=== PATIENT | male | born 1975 | race Caucasian/White ===

== ENCOUNTER 2017-05-04 23:47 | Observation (INO) | payer OTHER ==
--- NOTE | 2017-05-04 23:48 | EDM.PDOC ---
ED HPI GENERAL MEDICAL PROBLEM - General Stated Complaint: CHEST PAIN Time Seen by Provider: 05/05/17 00:55 - History of Present Illness INITIAL COMMENTS - FREE TEXT/NARRATIVE: HISTORY AND PHYSICAL: History of present illness: Patient is 41-year-old white male withpast medical history of sensory concern chest pain he states this awoke him from sleep and was midsternal moderate to severe he states he right arm and right leg discomfort with this all is resolved on arrival except chest pain that he rates as 4 out of 10 he did have some associated nausea equivocal shortness of breath he denies palpitations he denies history of prior coronary artery disease stroke he did state to having had one panic attack in the past for which he was hospitalized Review of systems: As per history of present illness and below otherwise all systems reviewed and negative. Past medical history: As per history of present illness and as reviewed below otherwise noncontributory. Surgical history: As per history of present illness and as reviewed below otherwise noncontributory. Social history: No reported history of drug or alcohol abuse. Family history: As per history of present illness and as reviewed below otherwise noncontributory. Physical exam: HEENT: Atraumatic, normocephalic, pupils reactive, negative for conjunctival pallor or scleral icterus, mucous membranes moist, throat clear, neck supple, nontender, trachea midline. Lungs: Clear to auscultation, breath sounds equal bilaterally, chest nontender. Heart: S1S2, regular, negative for clicks, rubs, or JVD. Abdomen: Soft, nondistended, nontender. Negative for masses or hepatosplenomegaly. Negative for costovertebral tenderness. Pelvis: Stable nontender. Genitourinary: Deferred. Rectal: Deferred. Extremities: Atraumatic, negative for cords or calf pain. Neurovascular unremarkable. Neuro: Awake, alert, oriented. Cranial nerves II through XII unremarkable. Cerebellum unremarkable. Motor and sensory unremarkable throughout. Exam nonfocal. Diagnostics: CBC CMP PT/INR troponin chest x-ray EKG Therapeutics: IV O2 monitor Ativan 1 mg IV Impression: 1 chest pain Definitive disposition and diagnosis as appropriate pending reevaluation and review of above. - Related Data Allergies Allergy/AdvReac Type Severity Reaction Status Date / Time lactose Allergy Abdominal Verified 05/04/17 23:50 Cramps morphine Allergy Rash Verified 05/04/17 23:50 Home Meds: Home Meds Omeprazole Magnesium [Prilosec Otc] 20 mg PO DAILY 07/28/13 [History] Lisinopril 20 mg PO DAILY 05/04/17 [History] Social & Family History - Tobacco Use Second Hand Smoke Exposure: No - Alcohol Use Days Per Week of Alcohol Use: 0 - Recreational Drug Use Recreational Drug Use: No ED ROS GENERAL - Review of Systems Review Of Systems: ROS reveals no pertinent complaints other than HPI. ED EXAM, GENERAL - Physical Exam Exam: See Below (See dictation) Course - Vital Signs Last Recorded V/S: Last Vital Signs Temp 36.5 C 05/04/17 23:51 Pulse 70 05/05/17 00:48 Resp 18 05/05/17 00:48 BP 127/75 05/05/17 00:48 Pulse Ox 96 05/05/17 00:48 - Orders/Labs/Meds Orders: Active Orders 24 hr Category Date Time Status EKG Documentation Completion [RC] STAT Care 05/04/17 23:51 Active Chest 1V Frontal [CR] Stat Exams 05/04/17 23:51 Taken Labs: Laboratory Tests 05/05/17 05/05/17 Range/Units 00:04 00:04 WBC 7.88 (4.0-11.0) K/uL RBC 4.70 (4.50-5.90) M/uL Hgb 14.2 (13.0-17.0) g/dL Hct 41.1 (38.0-50.0) % MCV 87.4 (80.0-98.0) fL MCH 30.2 (27.0-32.0) pg MCHC 34.5 (31.0-37.0) g/dL RDW Std Deviation 42.1 (28.0-62.0) fl RDW Coeff of Crescencio 13 (11.0-15.0) % Plt Count 218 (150-400) K/uL MPV 11.10 (7.40-12.00) fL Neut % (Auto) 60.1 (48.0-80.0) % Lymph % (Auto) 30.6 (16.0-40.0) % [place] % (Auto) 7.5 (0.0-15.0) % Eos % (Auto) 1.4 (0.0-7.0) % Baso % (Auto) 0.4 (0.0-1.5) % Neut # (Auto) 4.7 (1.4-5.7) K/uL Lymph # (Auto) 2.4 (0.6-2.4) K/uL [place] # (Auto) 0.6 (0.0-0.8) K/uL Eos # (Auto) 0.1 (0.0-0.7) K/uL Baso # (Auto) 0.0 (0.0-0.1) K/uL Nucleated RBC % 0.0 /100WBC Nucleated RBCs # 0 K/uL Sodium 138 (136-148) mmol/L Potassium 3.8 (3.5-5.1) mmol/L Chloride 105 (98-107) mmol/L Carbon Dioxide 26.8 (21.0-32.0) mmol/L BUN 18 (7.0-18.0) mg/dL Creatinine 1.1 (0.8-1.3) mg/dL Est Cr Clr Drug Dosing 90.33 mL/min Estimated GFR (MDRD) > 60.0 ml/min Glucose 170 H (74-106) mg/dL Calcium 8.6 (8.5-10.1) mg/dL Total Bilirubin 0.9 (0.2-1.0) mg/dL AST 27 (15-37) IU/L ALT 73 H (14-63) IU/L Alkaline Phosphatase 46 (46-116) U/L Total Protein 6.9 (6.4-8.2) g/dL Albumin 3.7 (3.4-5.0) g/dL Globulin 3.2 (2.0-3.5) g/dL Albumin/Globulin Ratio 1.2 L (1.3-2.8) Meds: Medications Discontinued Medications Generic Name Dose Route Start Last Admin Trade Name Freq PRN Reason Stop Dose Admin Sodium Chloride 1,000 mls @ 999 mls/hr 05/04/17 23:55 05/05/17 00:00 Normal Saline IV 05/05/17 00:55 999 mls/hr .Bolus ONE Administration Lorazepam 1 mg 05/04/17 23:51 05/05/17 00:01 Ativan IVPUSH 05/04/17 23:52 1 mg ONETIME ONE Administration Nitroglycerin 1 gm 03/23/18 00:53 Nitro-Bid 2% TOP 05/05/17 00:54 ONETIME ONE Ondansetron HCl 4 mg 05/04/17 23:55 05/05/17 00:01 Zofran IVPUSH 05/04/17 23:56 4 mg ONETIME ONE Administration Departure - Departure Time of Disposition: 00:55 Disposition: Refer to Observation Condition: Good Clinical Impression: Chest pain - Discharge Information - My Orders Last 24 Hours: My Active Orders 05/04/17 23:51 EKG Documentation Completion [RC] STAT Chest 1V Frontal [CR] Stat - Assessment/Plan Last 24 Hours: My Active Orders 05/04/17 23:51 EKG Documentation Completion [RC] STAT Chest 1V Frontal [CR] Stat
[2017-05-04] MEDS ORDERED: LORazepam 2 MG/ML SDV IVPUSH ONE (23:51)
[2017-05-04] MEDS ORDERED: Ondansetron 4 MG/2 ML SDV IVPUSH ONE (23:55)
[2017-05-04] MEDS ORDERED: Sodium Chloride 0.9% 1,000 ML IV ONE (23:55)
[2017-05-05 00:40] LABS: CHLORIDE,CL 105 mmol/L (98-107); SODIUM,NA 138 mmol/L (136-148)
[2017-05-05] MEDS ORDERED: Nitroglycerin 2% Oint 1 GM UD Packet TOP ONE (00:53)
[2017-05-05] MEDS ORDERED: Acetaminophen 325 MG Tab PO PRN (02:05)
[2017-05-05] MEDS ORDERED: Ondansetron 4 MG/2 ML SDV IVPUSH PRN (02:06)
[2017-05-05] MEDS ORDERED: Morphine 4 MG/ML Syringe IVPUSH PRN (05:02)
[2017-05-05] MEDS: traMADol 50 MG Tab PO PRN ×2 (05:10→11:19)
[2017-05-05] MEDS ORDERED: Alum Hydrox/Mag Hydrox/Simeth 15 ML, Lidocaine 2% 5 ML PO ONE ×2 (09:07)
[2017-05-05] MEDS ORDERED: Pantoprazole 40 MG Vial IVPUSH SCH (09:15)
--- NOTE | 2017-05-05 09:46 | PCM.HP ---
H&P History of Present Illness - General Date of Service: 05/05/17 Admit Problem/Dx: Admission Diagnosis/Problem Admission Diagnosis/Problem Chest pain Source of Information: Patient History Limitations: Reports: No Limitations - History of Present Illness Initial Comments - Free Text/Narative: This 41 year old male with pmh of GERD, HTN and obesity presented to the ED with complaints of midsternal chest pain which radiated to his R chest and R arm. He was also having some N/V and elevated BP at home after a vomiting episode. He reports he was just lying down to sleep and started having this midsternal almost R sided chest pain, he then felt nauseated and vomited. He checked his blood pressure after this episode and it was elevated at 160/110s. He called EMS. He reports not the pain to his chest is slightly better, he was given Nitro paste in the ED, which helped the pain but caused a severe headache now, that is pounding and all over. No neck pain. Chest pain is better, but did slightly come back after removing the nitro paste this morning. He denies lower abdominal pain, more epigastric. No black or bloody BMs. Urinating ok, reports having some testicular pain with erection and ejaculation recently with a weak stream intermittently. Also a foul smell to urine at times. No penile drainage or dysuria noted. No fevers at home, no URI symptoms or SOB. In the ED labowork WNL, EKG SR with no ischemic changes., VS stable. CXR negative. he was give Nitro paste which helped. He will be admitted for atypical chest pain rule out ACS. chest Pain Score (Numeric/FACES): 2 - Related Data Allergies/Adverse Reactions: Allergies Allergy/AdvReac Type Severity Reaction Status Date / Time lactose Allergy Mild Abdominal Verified 05/05/17 02:00 Cramps Home Medications: Home Meds Lisinopril 20 mg PO DAILY 05/04/17 [History] Pantoprazole Sodium [Protonix] 40 mg PO DAILY #30 tablet. 05/05/17 [Rx] Past Medical History HEENT History: Reports: None Cardiovascular History: Reports: Hypertension. Denies: Afib, Blood Clots/VTE/ DVT, CAD, HI Respiratory History: Reports: None. Denies: Asthma, COPD Gastrointestinal History: Reports: GERD, Other (See Below). Denies: GI Bleed Other Gastrointestinal History: Gilbert's syndrome, reports being told liver is very diseased, but never followed up with anyone regarding this. Genitourinary History: Reports: None. Denies: Chronic Renal Insuffiency Musculoskeletal History: Reports: Amputation (R pinky finger, distal portion) Neurological History: Reports: None. Denies: CVA, TIA Psychiatric History: Reports: None Endocrine/Metabolic History: Reports: Obesity/BMI 30+. Denies: Diabetes, Type II, Hypothyroidism Hematologic History: Reports: None Immunologic History: Reports: None Oncologic (Cancer) History: Reports: None Dermatologic History: Reports: None - Infectious Disease History Infectious Disease History: Reports: None - Past Surgical History Head Surgeries/Procedures: Reports: None Cardiovascular Surgical History: Reports: None GI Surgical History: Reports: Appendectomy, Cholecystectomy Endocrine Surgical History: Reports: None Social & Family History - Family History Cardiac: Reports: CAD, Hypertension Endocrine/Metabolic: Reports: Diabetes, Type I, Diabetes, type II, Obesity/MBI 30+ - Tobacco Use Smoking Status *Q: Never Smoker Second Hand Smoke Exposure: No - Caffeine Use Caffeine Use: Reports: Coffee - Alcohol Use Days Per Week of Alcohol Use: 1 Number of Drinks Per Day: 1 Total Drinks Per Week: 1 Date of Last Drink: 05/02/17 - Recreational Drug Use Recreational Drug Use: No H&P Review of Systems - Review of Systems: Review Of Systems: See Below General: Denies: Fever, Chills, Malaise, Weakness HEENT: Reports: No Symptoms, Headaches (pounding all over, tramadol has helped.) . Denies: Sinus Congestion, Sore Throat, Vertigo Pulmonary: Reports: No Symptoms. Denies: Shortness of Breath, Wheezing, Cough, Sputum Cardiovascular: Reports: No Symptoms. Denies: Chest Pain, Palpitations, Edema, Lightheadedness, Syncope Gastrointestinal: Reports: Abdominal Pain (epigastric, intermittent pressure now. Does not worsen with food, but it appears after he eats the pain elevates. No pain after lunch. ). Denies: Black Stool, Bloody Stool Genitourinary: Reports: No Symptoms, Other (as per HPI). Denies: Dysuria, Frequency, Burning Musculoskeletal: Reports: No Symptoms Psychiatric: Reports: No Symptoms Hematologic/Lymphatic: Reports: No Symptoms Immunologic: Reports: No Symptoms Exam - Exam Exam: See Below - Vital Signs Vital Signs: Last Vital Signs Temp 98.6 F 05/05/17 08:00 Pulse 61 05/05/17 08:00 Resp 16 05/05/17 08:00 BP 104/59 L 05/05/17 08:00 Pulse Ox 94 L 05/05/17 08:00 Weight: 126.3 kg - Exam General: Alert, Oriented, Cooperative HEENT: Conjunctiva Clear, Mucosa Moist & Rote, Posterior Pharynx Clear, Pupils Equal Neck: Supple, Trachea Midline, Full Range of Motion Lungs: Clear to Auscultation, Normal Respiratory Effort Cardiovascular: Regular Rate, Regular Rhythm GI/Abdominal Exam: Normal Bowel Sounds, Soft, No Organomegaly, No Distention, No Abnormal Bruit, No Mass, Pelvis Stable, Tender (epigastric and midsternal) (Male) Exam: No: Inguinal Lymphadenopathy, Penile Lesions, Scrotal Swelling, Scrotum Tenderness (L), Scrotum Tenderness (R), Testicular Tenderness (L), Testicular Tenderness (R), Urethral Discharge Back Exam: Normal Inspection, Full Range of Motion, NT Extremities: Normal Inspection, Normal Range of Motion, Non-Tender, No Pedal Edema, Normal Capillary Refill Skin: Warm, Dry, Intact Neurological: Cranial Nerves Intact Neuro Extensive - Mental Status: Alert, Oriented x3, Normal Mood/Affect, Normal Cognition Neuro Extensive - Motor, Sensory, Reflexes: CN II-XII Intact Psychiatric: Alert, Normal Affect, Normal Mood - Patient Data Lab Results Last 24 hrs: Laboratory Results - last 24 hr 05/05/17 05/05/17 05/05/17 Range/Units 06:17 06:17 06:17 Hemoglobin A1c 6.0 (4.5-6.2) % Troponin I < 0.050 (0.000-0.056) ng/mL Triglycerides 96 (0-200) mg/dL Cholesterol 147 (50-200) mg/dL LDL Cholesterol, Calc 87 (60-180) mg/dL VLDL Cholesterol 19 (5-55) mg/dL HDL Cholesterol 41 (40-60) mg/dL Cholesterol/HDL Ratio 3.6 (3.3-6.0) Urine Color Urine Appearance Urine pH (5.0-8.0) Ur Specific [place] (1.001-1.035) Urine Protein (NEGATIVE) mg/dL Urine Glucose (UA) (NEGATIVE) mg/dL Urine Ketones (NEGATIVE) mg/dL Urine Occult Blood (NEGATIVE) Urine Nitrite (NEGATIVE) Urine Bilirubin (NEGATIVE) Urine Urobilinogen (<2.0) EU/dL Ur Leukocyte Esterase (NEGATIVE) Urine RBC (0-2/HPF) Urine WBC (0-5/HPF) Ur Epithelial Cells (NONE-FEW) Urine Bacteria (NEGATIVE) 05/05/17 Range/Units 09:17 Hemoglobin A1c (4.5-6.2) % Troponin I (0.000-0.056) ng/mL Triglycerides (0-200) mg/dL Cholesterol (50-200) mg/dL LDL Cholesterol, Calc (60-180) mg/dL VLDL Cholesterol (5-55) mg/dL HDL Cholesterol (40-60) mg/dL Cholesterol/HDL Ratio (3.3-6.0) Urine Color YELLOW Urine Appearance CLEAR Urine pH 6.0 (5.0-8.0) Ur Specific [place] >= 1.030 (1.001-1.035) Urine Protein NEGATIVE (NEGATIVE) mg/dL Urine Glucose (UA) NEGATIVE (NEGATIVE) mg/dL Urine Ketones NEGATIVE (NEGATIVE) mg/dL Urine Occult Blood NEGATIVE (NEGATIVE) Urine Nitrite NEGATIVE (NEGATIVE) Urine Bilirubin NEGATIVE (NEGATIVE) Urine Urobilinogen 0.2 (<2.0) EU/dL Ur Leukocyte Esterase NEGATIVE (NEGATIVE) Urine RBC 0-1 (0-2/HPF) Urine WBC 0-1 (0-5/HPF) Ur Epithelial Cells RARE (NONE-FEW) Urine Bacteria RARE (NEGATIVE) Result Diagrams: 05/05/17 00:04 05/05/17 00:04 EKG INTERPRETATION EKG Date: 05/05/17 Rhythm: NSR Rate (Beats/Min): 80 P-Wave: Present QRS: Normal ST-T: Normal QT: Normal *Q Meaningful Use (ADM) - VTE *Q VTE Criteria *Q: - Stroke *Q Stroke Criteria *Q: - AMI *Q AMI Criteria *Q: - Problem List (1) Chest pain SNOMED Code(s): 37461964 ICD Code: R07.9 - CHEST PAIN, UNSPECIFIED Status: Acute Current Visit: Yes (2) HTN (hypertension) SNOMED Code(s): 43929558 ICD Code: I10 - ESSENTIAL (PRIMARY) HYPERTENSION Status: Chronic Current Visit: Yes Qualifiers: Hypertension type: essential hypertension Qualified Code(s): I10 - Essential (primary) hypertension (3) GERD (gastroesophageal reflux disease) SNOMED Code(s): 703973146 ICD Code: K21.9 - GASTRO-ESOPHAGEAL REFLUX DISEASE WITHOUT ESOPHAGITIS Status: Chronic Current Visit: Yes Problem List Initiated/Reviewed/Updated: Yes Orders Last 24hrs: Active Orders 24 hr Category Date Time Status EKG 12 Lead [EKG Documentation Completion] [RC] STAT Care 05/05/17 05:16 Active Telemetry Monitoring [Cardiac Monitoring] [RC] . Care 05/05/17 02:05 Active DIRECTED Cardiac [Heart Healthy Diet] [DIET] Diet 05/05/17 Breakfast Active TROPONIN I [CHEM] Routine Lab 05/05/17 12:00 Ordered Acetaminophen [Tylenol] Med 05/05/17 02:05 Active 650 mg PO Q4H PRN Morphine Med 05/05/17 05:02 Active 2 mg IVPUSH Q4H PRN Ondansetron [Zofran] Med 05/05/17 02:06 Active 4 mg IVPUSH Q6H PRN Pantoprazole [ProTONIX IV] Med 05/05/17 09:15 Active 40 mg IVPUSH Q24H traMADol [Ultram] Med 05/05/17 05:02 Active 50 mg PO Q6H PRN Medication Orders Acetaminophen (Tylenol) 650 mg PO Q4H PRN PRN Reason: Pain Morphine Sulfate (Morphine) 2 mg IVPUSH Q4H PRN PRN Reason: Pain Ondansetron HCl (Zofran) 4 mg IVPUSH Q6H PRN PRN Reason: Nausea/Vomiting Pantoprazole Sodium (Protonix Iv) 40 mg IVPUSH Q24H STACY Tramadol HCl (Ultram) 50 mg PO Q6H PRN PRN Reason: Headache Last Admin: 05/05/17 05:10 Dose: 50 mg Assessment/Plan Comment:: Discharge Plan: This 41 year old male admitted with atypical chest pain 1. Atypical chest pain: ACS rule dout, all troponins negative. Pain sounds more like GERD/gastritis.. Protonix to be given for 30 days, encouraged not to eat late in the evening and eat small meals. He will be set up with stress test due to HTN and risk. Lipid panel good, LDL 87 and HDL 41 and A1c 6.0. Educated on losing weight and exercising to minimize his risk of DM. 2. GERD: Had extensive work up 5 or so years ago and was told to take Omeprazole , but has been non complaint with this. Does take Aleve for pain 3-5 times weekly depending sometimes more or less. No alcohol use. Could benefit from EGD if symptoms worsen. Reports never feeling right since cholecystectomy 5-6 years ago . 3. HTN: Stable: Continue Lisinopril 4. Gilbert's syndrome: Told he has severe liver disease by surgeon who removed gallbladder, but never followed up. As a courtesy will get him to see GI specialist in [place] to establish care. ALT slightly elevated, otherwise no other LFT elevation. Does not use Tylenol and no alcohol. 5. Pain with erection: No emergent issues currently. No scrotal swelling or testicular pain. UA negative. no urethral drainage or dysuria. Encouraged follow up with PCP. Discussed at length about his need to follow up with PCP as well as GI as per their request. He will be arranged with stress test as well as follow up. He will be discharged home today with Protonix for GERD. Continues to have headache, likely secondary to Nitro paste. Encouraged to take Tylenol sparingly for headache. He is to return to ED or clinic if concerns should arise.
--- NOTE | 2017-05-05 14:14 | CR ---
EXAM DATE: 05/05/17 PATIENT'S AGE: 41 Patient: EDGARD STEVENSON Facility: [place], [place] Site . Site : 1975 Study: XRay Chest [id number]/23/2018 12:13:58 AM Ordering Physician: Juan Francisco Menjivar Final Report: HISTORY: Chest pain. FINDINGS: AP portable chest radiograph demonstrates a normal cardiac silhouette. Pulmonary vasculature and zeina are normal. No lobar consolidation or pleural effusion is seen. Bony structures are within normal limits. IMPRESSION: No acute cardiopulmonary disease. Dictated by Katrin Gallegos MD @ 05/05/2017 12:15:27 AM Dictated by: Katrin Gallegos MD @ 05/05/2017 00:15:33 (Electronic Signature) Report Signed by Proxy. [facility]
== END 2017-05-05 12:15 | disposition home or self-care (01) ==
LOC: MW.ED 23:47 → MW.MS 05-05 00:56
PROVIDERS: ADMIT Internal Medicine; ATTEND Internal Medicine
DX: R07.89 Other chest pain (principal); K21.9 Gastro-esophageal reflux disease without esophagitis; I10 Essential (primary) hypertension; E66.9 Obesity, unspecified; E80.4 Gilbert syndrome; Z68.30 Body mass index [BMI] 30.0-30.9, adult; Z88.5 Allergy status to narcotic agent; Z91.011 Allergy to milk products; Z79.899 Other long term (current) drug therapy
CPT/HCPCS: 36415; 71045; 80053; 80061; 81001; 82553; 83036; 84484; 85025; 93005; 96374; 96375; 99285; A9270; C9113; J2060; J2405; J7040; 96361; 99283; G0378

== ENCOUNTER 2018-07-25 07:35 | Day surgery (SDC) | payer OTHER ==
[~2018-07-25 07:35] MED LIST: Lactated Ringers 1,000 ML IV SCH; Lidocaine 1% 20 ML MDV ONE; Lidocaine 2% 5 ML SDV ONE; Midazolam 1 MG/ML 2 ML SDV ONE; Ondansetron 4 MG/2 ML SDV ONE; Propofol 200 MG/20 ML SDV ONE; fentaNYL 250 MCG/5 ML SDV ONE
[2018-07-25] MEDS ORDERED: Acetaminophen/HYDROcodone 325-5 MG Tab PO PRN (08:00)
[2018-07-25] MEDS ORDERED: ceFAZolin 2 GM in Premix Bag 1 BAG IV SCH (08:00)
[2018-07-25] MEDS ORDERED: Albuterol 0.083% 2.5 MG/3 ML Neb Soln NEB PRN (08:26)
[2018-07-25] MEDS ORDERED: EPINEPHrine 1:10,000 1 MG/10 ML Syringe IVPUSH PRN (08:26)
[2018-07-25] MEDS ORDERED: Atropine 0.1 MG/ML 10 ML Syringe IVPUSH PRN ×2 (08:26)
[2018-07-25] MEDS ORDERED: 50% Dextrose in Water 50 ML Syringe IVPUSH PRN (08:26)
[2018-07-25] MEDS ORDERED: fentaNYL 100 MCG/2 ML SDV IVPUSH PRN (08:26)
[2018-07-25] MEDS ORDERED: Naloxone 0.4 MG/ML Syringe IVPUSH PRN (08:26)
--- NOTE | 2018-07-25 08:33 | PCM.PREANE ---
Preanesthetic Assessment - Anesthesia/Transfusion/Family Hx Anesthesia History: Prior Anesthesia Reaction (very slow to wake after anesthesia) Family History of Anesthesia Reaction: No Transfusion History: No Prior Transfusion(s) Intubation History: Unknown - Review of Systems General: No Symptoms Pulmonary: No Symptoms Cardiovascular: No Symptoms Gastrointestinal: No Symptoms Neurological: No Symptoms Other: Reports: None - Physical Assessment O2 Sat by Pulse Oximetry: 94 Respiratory Rate: 16 Vital Signs: Last Vital Signs Temp 36.3 C 07/25/18 08:00 Pulse 65 07/25/18 08:00 Resp 16 07/25/18 08:00 BP 130/92 H 07/25/18 08:00 Pulse Ox 94 L 07/25/18 08:00 Height: 5 ft 10 in Weight: 127.006 kg ASA Class: 2 Mental Status: Alert & Oriented x3 Airway Class: Mallampati = 2 Dentition: Reports: Normal Dentition Thyro-Mental Finger Breadths: 3 Mouth Opening Finger Breadths: 2 ROM/Head Extension: Full Lungs: Clear to Auscultation, Normal Respiratory Effort Cardiovascular: Regular Rate, Regular Rhythm - Allergies Allergies/Adverse Reactions: Allergies Allergy/AdvReac Type Severity Reaction Status Date / Time lactose Allergy Mild Abdominal Verified 05/05/17 02:00 Cramps - Blood Blood Available: No - Anesthesia Plan Pre-Op Medication Ordered: None - Acknowledgements Anesthesia Type Planned: General Anesthesia Pt an Appropriate Candidate for the Planned Anesthesia: Yes Alternatives and Risks of Anesthesia Discussed w Pt/Guardian: Yes Pt/Guardian Understands and Agrees with Anesthesia Plan: Yes PreAnesthesia Questionnaire HEENT History: Reports: Other (See Below) Other HEENT History: wears glasses Cardiovascular History: Reports: Hypertension Respiratory History: Reports: Sleep Apnea Other Respiratory History: uses CPAP, required 1 on 1 nursing care for 6 hours post Cholecystectomy to monitor breathing Gastrointestinal History: Reports: GERD Other Gastrointestinal History: Gilbert's syndrome, reports being told liver is very diseased, but never followed up with anyone regarding this. Genitourinary History: Reports: None. Denies: Chronic Renal Insuffiency Musculoskeletal History: Reports: Amputation (R pinky finger, distal portion) Neurological History: Reports: Other (See Below) Other Neuro History: hx of Spina Bifita Occulta, has degenerative disc disease in lower back Psychiatric History: Reports: None Endocrine/Metabolic History: Reports: Obesity/BMI 30+, Other (See Below) Other Endocrine/Metabolic History: hx of Hashimotos thyroid Hematologic History: Reports: None Immunologic History: Reports: None Oncologic (Cancer) History: Reports: None Dermatologic History: Reports: Cellulitis Other Dermatologic History: hx of recurrent cellulitis in right leg ( last was 8 months ago) - Infectious Disease History Infectious Disease History: Reports: None - Past Surgical History HEENT Surgical History: Reports: Naso-Sinus Surgery Other HEENT Surgeries/Procedures: Septoplasty GI Surgical History: Reports: Appendectomy, Cholecystectomy Musculoskeletal Surgical History: Reports: Other (See Below) Other Musculoskeletal Surgeries/Procedures:: amputationof right pinky finger - SUBSTANCE USE Smoking Status *Q: Never Smoker Recreational Drug Use History: No - HOME MEDS Home Medications: Home Meds Lisinopril 20 mg PO BEDTIME 05/04/17 [History] Celecoxib 200 mg PO DAILY 07/20/18 [History] Omeprazole 20 mg PO BID 07/20/18 [History] - CURRENT (IN HOUSE) MEDS Current Meds: Current Medications Hydrocodone Bitart/Acetaminophen (Brooks 325-5 Mg) 1 - 2 tab PO Q4H PRN PRN Reason: Pain Albuterol (Proventil Neb Soln) 2.5 mg NEB ONETIME PRN PRN Reason: Wheezing Atropine Sulfate (Atropine 0.1 Mg/Ml) 0.5 mg IVPUSH ASDIRECTED PRN PRN Reason: Hypo-perfusion Atropine Sulfate (Atropine 0.1 Mg/Ml) 1 mg IVPUSH ASDIRECTED PRN PRN Reason: Hypo-Perfusion Dextrose/Water (Dextrose 50% In Water) 50 ml IVPUSH ASDIRECTED PRN PRN Reason: Hypoglycemia Epinephrine HCl (Epinephrine 1:10,000) 1 mg IVPUSH ASDIRECTED PRN PRN Reason: ACLS Guidelines Fentanyl (Sublimaze) 50 - 100 mcg IVPUSH Q5M PRN PRN Reason: Pain Cefazolin Sodium/Dextrose 2 gm (/ Premix) 50 mls @ 100 mls/hr IV ONCALL STACY Lactated Ringer's (Ringers, Lactated) 1,000 mls @ 100 mls/hr IV ASDIRECTED STACY Last Admin: 07/25/18 08:00 Dose: 100 mls/hr Naloxone HCl (Narcan) 0.1 mg IVPUSH ASDIRECTED PRN PRN Reason: Respiratory Depression Discontinued Medications Fentanyl (Sublimaze) Confirm Administered Dose 250 mcg .ROUTE .STK-MED ONE Stop: 07/25/18 07:13 Lidocaine (Xylocaine-Mpf 2%) Confirm Administered Dose 5 ml .ROUTE .STK-MED ONE Stop: 07/25/18 07:13 Lidocaine HCl (Xylocaine 1%) Confirm Administered Dose 20 ml .ROUTE .STK-MED ONE Stop: 07/25/18 07:21 Midazolam HCl (Versed 1 Mg/Ml) Confirm Administered Dose 2 mg .ROUTE .STK-MED ONE Stop: 07/25/18 07:13 Ondansetron HCl (Zofran) Confirm Administered Dose 4 mg .ROUTE .STK-MED ONE Stop: 07/25/18 07:13 Propofol (Diprivan 20 Ml) Confirm Administered Dose 200 mg .ROUTE .STK-MED ONE Stop: 07/25/18 07:13
[2018-07-25] MEDS ORDERED: ceFAZolin 1 GM Vial ONE (08:58)
[2018-07-25] MEDS ORDERED: Sodium Chloride 0.9% 20 ML ONE (08:58)
[2018-07-25] MEDS ORDERED: Glycopyrrolate 0.2 MG/ML SDV ONE (09:03)
--- NOTE | 2018-07-25 09:40 | PCM.OPNOTE ---
- General Post-Op/Procedure Note Date of Surgery/Procedure: 07/25/18 Operative Procedure(s): R knee scope with PMM Post-Op Diagnosis: R knee med meniscus tear, R knee DJD Anesthesia Technique: General ET Tube Primary Surgeon: Ashlie Bhatti Textile Colorist Formulator: Deb Holcomb in mLs: 5 Condition: Good Free Text/Narrative:: tt=12 min #[id number]
[2018-07-25] MEDS ORDERED: Acetaminophen 1,000 MG in Premix Bag 1 BAG IV ONE (10:25)
[2018-07-25] MEDS ORDERED: Ketorolac 30 MG/ML SDV ONE (10:38)
[2018-07-25] MEDS ORDERED: Ketorolac 30 MG/ML SDV IVPUSH ONE (10:42)
--- NOTE | 2018-07-25 10:46 | PCM.POSTAN ---
POST ANESTHESIA ASSESSMENT - MENTAL STATUS Mental Status: Alert, Somnolent Free Text/Narrative:: Somewhat sleepy. Maintains Sa02's. Given IV Ofirmev and Toradol for both knee discomfort and headache. - VITAL SIGNS Pulse Rate: 56 SaO2: 95 Resp Rate: 16 Blood Pressure: 116/82 Temperature: 37.2 C - RESPIRATORY Respiratory Status: Respiratory Rate WNL - CARDIOVASCULAR CV Status: Pulse Rate WNL - GASTROINTESTINAL GI Status: Nauseau Free Text/Narrative:: Slight nausea. Received Zofran in OR. - PAIN Pain Score: 4 (Given both Ofirmev and Toradol in Recovery.) Free Text/Narrative:: Slowly improving. - POST OP HYDRATION Hydration Status: Adequate & Stable (Stable. Transfer to phase 2.)
--- NOTE | 2018-07-25 11:49 | OR ---
SURGEON: Ashlie Bhatti MD DATE OF PROCEDURE: 07/25/2018 PREOPERATIVE DIAGNOSES: 1. Right knee medial meniscus tear. 2. Right knee degenerative joint disease. POSTOPERATIVE DIAGNOSES: 1. Right knee medial meniscus tear. 2. Right knee degenerative joint disease. PROCEDURE: Right knee arthroscopy with partial medial meniscectomy. PRIMARY SURGEON: Ashlie Bhatti MD. ASSEMBLY CLEANER: KHADAR Albrecht. ANESTHESIA: General. ESTIMATED BLOOD LOSS: 5 mL. TOURNIQUET TIME: 12 minutes. COMPLICATIONS: None. DVT PROPHYLAXIS: Not indicated. IMPLANTS USED: None. BRIEF HISTORY: Winston is a 42-year-old male, who has had complaint of progressive right knee pain. He had failed conservative treatment. Due to his lack of response to conservative treatment, I did recommend surgical intervention. The risks and goals of the procedure were discussed with the patient and were documented preoperatively. He agreed to proceed. DESCRIPTION OF PROCEDURE: The patient was properly identified and brought to the operating room. He was transferred from the OR cart and placed on the operating room table in a supine position. General anesthesia was administered. After adequate anesthesia was obtained, a well-padded tourniquet was applied to the right lower extremity. The right lower extremity was then prepped in standard fashion using ChloraPrep solution. It was then sterilely draped. A time-out was performed to ensure correct site and procedure. Preoperative antibiotics were given. The surgical site had been marked preoperatively. An Esmarch was used to exsanguinate the right lower extremity and the tourniquet was inflated to 250 mmHg. A lateral portal arthrotomy was established. Blunt trocar and cannula were introduced into the suprapatellar space. Camera, inflow, and outflow were assembled. No significant synovitis was noted. The patellofemoral joint was visualized. He had a small area of grade 2 chondromalacia along the lateral facet. The trochlea showed no degenerative findings. The patella appeared to track centrally. I then extended down the lateral gutter. No loose bodies were identified. As I attempted to extend down the medial gutter, it was noted that he had a large band of tissue that appeared to be causing some impingement. I then extended down the medial gutter. No loose bodies were identified. I then entered the medial compartment. A medial portal arthrotomy was established. A blunt trocar was inserted. He did have a radial tear along the posterior horn of the medial meniscus. Using a combination of biters and shaver, this was resected back to a stable remnant. It was again probed and the remainder was found to be intact. The medial femoral condyle was then inspected. He had diffuse grade 3 chondromalacia diffusely over the weightbearing surface of the medial femoral condyle. There were some "loose cartilage fragments" that were debrided with chondroplasty. The medial tibial plateau showed diffuse grade 2 findings. I then entered the notch. Both the ACL and PCL were visualized and probed and found to be intact. I finally entered the lateral compartment. The lateral meniscus was probed and found to be stable. The lateral femoral condyle showed no significant degenerative findings. There was a deep fissure along the medial border of the lateral tibial plateau. This was probed and no adjacent cartilage was loose. I then re-entered the patellofemoral joint. The patella was probed and no loose cartilage pieces were noted. I did debride a portion of the synovium, which appeared to be causing some impingement on the medial femoral condyle. Instruments were then removed from the knee. The portal sites were closed with 3-0 nylon. 1% lidocaine was injected along the portal tracts. Xeroform gauze was placed over the wounds and a bulky dressing was applied. The tourniquet was then deflated. He was awakened from his anesthetic and transferred back to the operating room cart. He was brought to recovery room in stable condition. All needle and sponge counts were correct. JEWELL / DANIEL /[id number]
--- NOTE | 2018-07-25 13:53 | PCM48HPAN ---
Post Anesthesia Note - EVALUATION WITHIN 48HRS OF ANESTHETIC Vital Signs in Normal Range: Yes Patient Participated in Evaluation: Yes Respiratory Function Stable: Yes Airway Patent: Yes Cardiovascular Function Stable: Yes Hydration Status Stable: Yes Pain Control Satisfactory: Yes Nausea and Vomiting Control Satisfactory: Yes Mental Status Recovered: Yes Pulse Rate: 56 SaO2: 96 Resp Rate: 16 Temperature: 37.2 C Blood Pressure: 116/82 - COMMENTS/OBSERVATIONS Free Text/Narrative:: doing well. Some soreness. Ready for discharge.
== END 2018-07-25 13:43 | disposition home or self-care (01) ==
LOC: MW.SDS 07:35
PROVIDERS: ATTEND Orthopaedic Surgery
DX: S83.241A Other tear of medial meniscus, current injury, right knee, initial encounter (principal); M17.11 Unilateral primary osteoarthritis, right knee; G47.33 Obstructive sleep apnea (adult) (pediatric); E66.9 Obesity, unspecified; Z68.41 Body mass index [BMI] 40.0-44.9, adult; I10 Essential (primary) hypertension; Z91.011 Allergy to milk products; Z79.1 Long term (current) use of non-steroidal anti-inflammatories (NSAID); Z79.899 Other long term (current) drug therapy; Z99.89 Dependence on other enabling machines and devices; Z98.890 Other specified postprocedural states
CPT/HCPCS: 29881; 82962; A4217; A9270; J0131; J0690; J1885; J2001; J2250; J2405; J2704; J3010; J3490; J7120; 01400

== ENCOUNTER 2019-11-11 00:59 | Emergency (ER) | payer OTHER ==
[2019-11-11] MEDS ORDERED: Sodium Chloride 0.9% 10 ML Syringe FLUSH PRN (01:44)
[2019-11-11] MEDS ORDERED: Sodium Chloride 0.9% 2.5 ML Syringe FLUSH PRN (01:44)
--- NOTE | 2019-11-11 01:56 | EDM.PDOC ---
ED HPI GENERAL MEDICAL PROBLEM - General Chief Complaint: Behavioral/Psych Stated Complaint: MED. CLEARANCE/mental health Time Seen by Provider: 11/11/19 01:38 - History of Present Illness INITIAL COMMENTS - FREE TEXT/NARRATIVE: History of present illness: [] The patient made serious threats of suicide tonight. He is never tried it before. He went to the [place] and said he wanted to swim in and around. He did not have the "balls" to do it. Then he went to the train track and waited what he calls a long time for a train. By the time a train came his coworker had been summoned by the and had found him. The friend talked him out of jumping in front of the train. Then the patient got a small knife and tried to scratch himself on the abdomen and wanted to cut his wrist but he chickened out according to him. The called the police they interviewed him and they brought him to me. He does not want to but he does not want to live because he says he has problems and he does not think he can work him out without help. He does not think anybody will help him although he has friends and family. He does not think he is worth being helped according to him. The patient has no delusions or hallucinations. He has no prior attempt. Review of systems: As per history of present illness and below otherwise all systems reviewed and negative. Past medical history: As per history of present illness and as reviewed below otherwise noncontributory. Surgical history: As per history of present illness and as reviewed below otherwise noncontributory. Social history: No reported history of drug or alcohol abuse. Family history: As per history of present illness and as reviewed below otherwise noncontributory. Physical exam: Constitutional - well developed, well-nourished and in no acute distress HEENT - normocephalic, no evidence of trauma - external nose and mouth normal - no mass in neck and no JVD - mucosae moist EYES - full EOM, PERRL, no icterus - no evidence of inflammation, injection, or drainage Respiratory - no respiratory distress, equal bilateral expansion, lungs clear to auscultation and no abnormal lung sounds Cardiovascular - Regular Rhythm with S1 and S2 appreciated and no murmur, gallop or rub. GI - abdomen soft without distension or organomegaly - normal bowel sounds - no guard or rebound Musculoskeletal no gross deformity of long bones or joints - no tenderness, swelling or edema Neurologic - Alert and oriented times four - CN II-XII grossly intact - motor sensory and coordination symmetrically normal Psychiatric - appropriate mood and affect with normal thought content Hematologic - No petechiae or purpura - mucosa appropriate color and sclera not pale - normal nail bed color and refill Integument - no rash or evidence of trauma - normal turgor Diagnostics: [] Therapeutics: [] Impression: [] Plan: [] Definitive disposition and diagnosis as appropriate pending reevaluation and review of above. - Related Data Allergies Allergy/AdvReac Type Severity Reaction Status Date / Time lactose Allergy Mild Abdominal Verified 05/05/17 02:00 Cramps Home Meds: Home Meds Lisinopril 20 mg PO BEDTIME 05/04/17 [History] Omeprazole 20 mg PO BID 07/20/18 [History] Past Medical History HEENT History: Reports: Other (See Below) Other HEENT History: wears glasses Cardiovascular History: Reports: Hypertension Respiratory History: Reports: Sleep Apnea Other Respiratory History: uses CPAP, required 1 on 1 nursing care for 6 hours post Cholecystectomy to monitor breathing Gastrointestinal History: Reports: GERD Other Gastrointestinal History: Gilbert's syndrome, reports being told liver is very diseased, but never followed up with anyone regarding this. Genitourinary History: Reports: None. Denies: Chronic Renal Insuffiency Musculoskeletal History: Reports: Amputation (R pinky finger, distal portion) Neurological History: Reports: Other (See Below) Other Neuro History: hx of Spina Bifita Occulta, has degenerative disc disease in lower back Psychiatric History: Reports: None Endocrine/Metabolic History: Reports: Obesity/BMI 30+, Other (See Below) Other Endocrine/Metabolic History: hx of Hashimotos thyroid Hematologic History: Reports: None Immunologic History: Reports: None Oncologic (Cancer) History: Reports: None Dermatologic History: Reports: Cellulitis Other Dermatologic History: hx of recurrent cellulitis in right leg ( last was 8 months ago) - Infectious Disease History Infectious Disease History: Reports: None - Past Surgical History HEENT Surgical History: Reports: Naso-Sinus Surgery Other HEENT Surgeries/Procedures: Septoplasty GI Surgical History: Reports: Appendectomy, Cholecystectomy Musculoskeletal Surgical History: Reports: Other (See Below) Other Musculoskeletal Surgeries/Procedures:: amputationof right pinky finger Social & Family History - Family History Family Medical History: Noncontributory Cardiac: Reports: CAD, Hypertension Endocrine/Metabolic: Reports: Diabetes, Type I, Diabetes, type II, Obesity/MBI 30+ - Caffeine Use Caffeine Use: Reports: Coffee ED ROS GENERAL - Review of Systems Review Of Systems: Comprehensive ROS is negative, except as noted in HPI. ED EXAM, GENERAL - Physical Exam Exam: See Below Free Text/Narrative:: My physical exam as in the HPI Course - Vital Signs Text/Narrative:: 2:37 AM I have spoken with and Neto and he has accepted the patient to their psych facility. Is involuntarily committed for evaluation in the psych facility. Last Recorded V/S: Last Vital Signs Temp 97 F 11/11/19 03:00 Pulse 61 11/11/19 03:00 Resp 18 11/11/19 03:00 BP 130/82 11/11/19 03:00 Pulse Ox 97 11/11/19 03:00 - Orders/Labs/Meds Orders: Active Orders 24 hr Category Date Time Status EKG Documentation Completion [RC] AM Care 11/11/19 01:44 Active Sodium Chloride 0.9% [Saline Flush] Med 11/11/19 01:44 Active 10 ml FLUSH ASDIRECTED PRN Sodium Chloride 0.9% [Saline Flush] Med 11/11/19 01:44 Active 2.5 ml FLUSH ASDIRECTED PRN Saline Lock Insert [OM.PC] Stat Oth 11/11/19 01:44 Ordered Medication Orders Sodium Chloride (Saline Flush) 10 ml FLUSH ASDIRECTED PRN PRN Reason: Keep Vein Open Sodium Chloride (Saline Flush) 2.5 ml FLUSH ASDIRECTED PRN PRN Reason: Keep Vein Open Labs: Laboratory Tests 11/11/19 11/11/19 11/11/19 Range/Units 01:50 01:50 01:59 WBC 9.70 (4.0-11.0) K/uL RBC 4.92 (4.50-5.90) M/uL Hgb 15.0 (13.0-17.0) g/dL Hct 43.6 (38.0-50.0) % MCV 88.6 (80.0-98.0) fL MCH 30.5 (27.0-32.0) pg MCHC 34.4 (31.0-37.0) g/dL RDW Std Deviation 43.1 (28.0-62.0) fl RDW Coeff of Crescencio 13 (11.0-15.0) % Plt Count 213 (150-400) K/uL MPV 11.60 (7.40-12.00) fL Neut % (Auto) 63.9 (48.0-80.0) % Lymph % (Auto) 27.7 (16.0-40.0) % [place] % (Auto) 7.1 (0.0-15.0) % Eos % (Auto) 0.9 (0.0-7.0) % Baso % (Auto) 0.4 (0.0-1.5) % Neut # (Auto) 6.2 H (1.4-5.7) K/uL Lymph # (Auto) 2.7 H (0.6-2.4) K/uL [place] # (Auto) 0.7 (0.0-0.8) K/uL Eos # (Auto) 0.1 (0.0-0.7) K/uL Baso # (Auto) 0.0 (0.0-0.1) K/uL Nucleated RBC % 0.0 /100WBC Nucleated RBCs # 0 K/uL Sodium (136-148) mmol/L Potassium (3.5-5.1) mmol/L Chloride (98-107) mmol/L Carbon Dioxide (21.0-32.0) mmol/L BUN (7.0-18.0) mg/dL Creatinine (0.8-1.3) mg/dL Est Cr Clr Drug Dosing mL/min Estimated GFR (MDRD) ml/min Glucose (74-106) mg/dL Calcium (8.5-10.1) mg/dL Total Bilirubin (0.2-1.0) mg/dL AST (15-37) IU/L ALT (14-63) IU/L Alkaline Phosphatase (46-116) U/L Total Protein (6.4-8.2) g/dL Albumin (3.4-5.0) g/dL Globulin (2.6-4.0) g/dL Albumin/Globulin Ratio (0.9-1.6) Urine Color YELLOW Urine Appearance CLEAR Urine pH 5.5 (5.0-8.0) Ur Specific [place] >= 1.030 (1.001-1.035) Urine Protein NEGATIVE (NEGATIVE) mg/dL Urine Glucose (UA) NEGATIVE (NEGATIVE) mg/dL Urine Ketones NEGATIVE (NEGATIVE) mg/dL Urine Occult Blood NEGATIVE (NEGATIVE) Urine Nitrite NEGATIVE (NEGATIVE) Urine Bilirubin NEGATIVE (NEGATIVE) Urine Urobilinogen 0.2 (<2.0) EU/dL Ur Leukocyte Esterase NEGATIVE (NEGATIVE) Salicylates (0-20) mg/dL Urine Opiates Screen NEGATIVE (NEGATIVE) Ur Oxycodone Screen NEGATIVE (NEGATIVE) Urine Methadone Screen NEGATIVE (NEGATIVE) Acetaminophen ug/mL Ur Barbiturates Screen NEGATIVE (NEGATIVE) Ur Phencyclidine Scrn NEGATIVE (NEGATIVE) Ur Amphetamine Screen NEGATIVE (NEGATIVE) U Methamphetamines Scrn NEGATIVE (NEGATIVE) U Benzodiazepines Scrn NEGATIVE (NEGATIVE) U Cocaine Metab Screen NEGATIVE (NEGATIVE) U Marijuana (THC) Screen NEGATIVE (NEGATIVE) Ethyl Alcohol mg/dL 11/11/19 11/11/19 Range/Units 01:59 01:59 WBC (4.0-11.0) K/uL RBC (4.50-5.90) M/uL Hgb (13.0-17.0) g/dL Hct (38.0-50.0) % MCV (80.0-98.0) fL MCH (27.0-32.0) pg MCHC (31.0-37.0) g/dL RDW Std Deviation (28.0-62.0) fl RDW Coeff of Crescencio (11.0-15.0) % Plt Count (150-400) K/uL MPV (7.40-12.00) fL Neut % (Auto) (48.0-80.0) % Lymph % (Auto) (16.0-40.0) % [place] % (Auto) (0.0-15.0) % Eos % (Auto) (0.0-7.0) % Baso % (Auto) (0.0-1.5) % Neut # (Auto) (1.4-5.7) K/uL Lymph # (Auto) (0.6-2.4) K/uL [place] # (Auto) (0.0-0.8) K/uL Eos # (Auto) (0.0-0.7) K/uL Baso # (Auto) (0.0-0.1) K/uL Nucleated RBC % /100WBC Nucleated RBCs # K/uL Sodium 143 (136-148) mmol/L Potassium 3.9 (3.5-5.1) mmol/L Chloride 104 (98-107) mmol/L Carbon Dioxide 26.1 (21.0-32.0) mmol/L BUN 17 (7.0-18.0) mg/dL Creatinine 1.1 (0.8-1.3) mg/dL Est Cr Clr Drug Dosing 87.56 mL/min Estimated GFR (MDRD) > 60.0 ml/min Glucose 134 H (74-106) mg/dL Calcium 9.0 (8.5-10.1) mg/dL Total Bilirubin 1.0 (0.2-1.0) mg/dL AST 28 (15-37) IU/L ALT 65 H (14-63) IU/L Alkaline Phosphatase 63 (46-116) U/L Total Protein 7.8 (6.4-8.2) g/dL Albumin 4.3 (3.4-5.0) g/dL Globulin 3.5 (2.6-4.0) g/dL Albumin/Globulin Ratio 1.2 (0.9-1.6) Urine Color Urine Appearance Urine pH (5.0-8.0) Ur Specific [place] (1.001-1.035) Urine Protein (NEGATIVE) mg/dL Urine Glucose (UA) (NEGATIVE) mg/dL Urine Ketones (NEGATIVE) mg/dL Urine Occult Blood (NEGATIVE) Urine Nitrite (NEGATIVE) Urine Bilirubin (NEGATIVE) Urine Urobilinogen (<2.0) EU/dL Ur Leukocyte Esterase (NEGATIVE) Salicylates 0.3 (0-20) mg/dL Urine Opiates Screen (NEGATIVE) Ur Oxycodone Screen (NEGATIVE) Urine Methadone Screen (NEGATIVE) Acetaminophen <2.0 ug/mL Ur Barbiturates Screen (NEGATIVE) Ur Phencyclidine Scrn (NEGATIVE) Ur Amphetamine Screen (NEGATIVE) U Methamphetamines Scrn (NEGATIVE) U Benzodiazepines Scrn (NEGATIVE) U Cocaine Metab Screen (NEGATIVE) U Marijuana (THC) Screen (NEGATIVE) Ethyl Alcohol < 3.0 mg/dL Meds: Medications Generic Name Dose Route Start Last Admin Trade Name Freq PRN Reason Stop Dose Admin Sodium Chloride 10 ml 11/11/19 01:44 Saline Flush FLUSH ASDIRECTED PRN Keep Vein Open Sodium Chloride 2.5 ml 11/11/19 01:44 Saline Flush FLUSH ASDIRECTED PRN Keep Vein Open Departure - Departure Time of Disposition: 04:37 Disposition: DC/Tfer to Psych Hosp/Unit 65 Clinical Impression: Depression, Planning to commit suicide - Discharge Information Referrals: PCP,None [Primary Care Provider] - Forms: ED Department Discharge, [facility] Sepsis Event Note (ED) - Evaluation Sepsis Screening Result: No Definite Risk - Focused Exam Vital Signs: Vital Signs Temp Pulse Resp BP Pulse Ox 11/11/19 03:00 97 F 61 18 130/82 97 11/11/19 02:00 71 18 130/81 98 11/11/19 01:25 97 F 73 18 158/108 H 97 - My Orders Last 24 Hours: My Active Orders 11/11/19 01:44 EKG Documentation Completion [RC] AM Sodium Chloride 0.9% [Saline Flush] 10 ml FLUSH ASDIRECTED PRN Sodium Chloride 0.9% [Saline Flush] 2.5 ml FLUSH ASDIRECTED PRN Saline Lock Insert [OM.PC] Stat - Assessment/Plan Last 24 Hours: My Active Orders 11/11/19 01:44 EKG Documentation Completion [RC] AM Sodium Chloride 0.9% [Saline Flush] 10 ml FLUSH ASDIRECTED PRN Sodium Chloride 0.9% [Saline Flush] 2.5 ml FLUSH ASDIRECTED PRN Saline Lock Insert [OM.PC] Stat
[2019-11-11 02:22] LABS: ACETAMINOPHEN <2.0 ug/mL; BLOOD UREA NITROGEN,BUN 17 mg/dL (7.0-18.0); CARBON DIOXIDE,CO2 26.1 mmol/L (21.0-32.0); CHLORIDE,CL 104 mmol/L (98-107); GLUCOSE RANDOM 134 mg/dL (74-106); POTASSIUM,K 3.9 mmol/L (3.5-5.1); SODIUM,NA 143 mmol/L (136-148)
== END 2019-11-11 04:30 ==
LOC: MW.ED 00:59
DX: F32.9 Major depressive disorder, single episode, unspecified (principal); I10 Essential (primary) hypertension; K21.9 Gastro-esophageal reflux disease without esophagitis; E66.9 Obesity, unspecified; Z68.41 Body mass index [BMI] 40.0-44.9, adult; Z91.048 Other nonmedicinal substance allergy status; Z79.899 Other long term (current) drug therapy
CPT/HCPCS: 36415; 80053; 80305-QW; 80307; 81003; 84439; 84443; 85025; 93005; 99285; 99285-25